=== PATIENT | female | born 1995 | race African-American/Black ===

== ENCOUNTER 2018-10-12 10:41 | Emergency (ER) | payer OTHER ==
[~2018-10-12] VITALS: Ht 167.6 cm; Wt 55.2 kg
[2018-10-12 11:51] LABS: BILIRUBIN, URINE MANUAL NEGATIVE (NEGATIVE); GLUCOSE, URINE (UA) MANUAL NEGATIVE (NEGATIVE); KETONE, URINE MANUAL NEGATIVE (NEGATIVE); UROBILINOGEN, URINE MANUAL NORMAL (NORMAL)
[2018-10-12 12:40] LABS: BACTERIA, URINE MOD AMOUNT; HYALINE CAST, URINE NONE SEEN /lpf (0-1); RBC, URINE 0-1 /hpf (0-3); TRANSITIONAL EPI CELLS, URINE SMALL AMOUNT /hpf
[2018-10-12 12:41] LABS: MUCUS, URINE SMALL AMOUNT (NEGATIVE); SQUAMOUS EPITHELIAL CELL URINE LARGE AMOUNT /hpf (SMALL AMT)
[2018-10-12] MEDS ORDERED: NAPROXEN 250 MG TAB PO ONE (13:00)
[2018-10-12 14:40] VITALS: BP 108/64
[2018-10-12 16:32] LABS: CHLAMYDIA DNA AMPLIFICATION NEGATIVE (NEGATIVE); GC DNA AMPLIFICATION NEGATIVE (NEGATIVE)
== END 2018-10-12 14:40 | disposition home or self-care (01) ==
LOC: M ED 10:41
DX: M54.5 Low back pain (principal); R10.2 Pelvic and perineal pain; F17.210 Nicotine dependence, cigarettes, uncomplicated

== ENCOUNTER 2018-11-26 12:36 | Emergency (ER) | payer OTHER ==
[~2018-11-26] VITALS: Ht 167.6 cm; Wt 54.1 kg
[2018-11-26 12:37] VITALS: BP 131/72
[2018-11-26 13:31] LABS: URINE PREG TEST NEGATIVE (NEGATIVE)
[2018-11-26] MEDS ORDERED: NS 1,000 ML IV ONE (13:45)
[2018-11-26] MEDS ORDERED: KETOROLAC 30 MG/ML VIAL (J1885) IV ONE (13:45)
[2018-11-26] MEDS ORDERED: ONDANSETRON 4MG/2ML VIAL (J2405) IV ONE (13:45)
[2018-11-26 14:30] LABS: BASO % 0.2 % (0.0-1.0); EOS % 0.3 % (0.0-3.0); HEMATOCRIT 41.1 % (36.0-47.0); HEMOGLOBIN 12.7 g/dl (12.0-15.5); LYMPH # 1.4 10^3/uL (1.5-6.5); LYMPH % 15.4 % (24.0-44.0); MEAN CORPUSCULAR HEMOGLOBIN 23.2 pg (27.0-33.0); MEAN CORPUSCULAR HGB CONC 30.9 g/dl (32.0-36.5); MEAN CORPUSCULAR VOLUME 75.1 fl (80.0-96.0); MONO # 0.8 10^3/uL (0.0-0.8); MONO % 8.3 % (0.0-5.0); NEUTROPHILS # 6.9 10^3/uL (1.8-7.7); NEUTROPHILS % 75.6 % (36.0-66.0); PLATELET COUNT, AUTOMATED 261 10^3/uL (150-450); RED BLOOD COUNT 5.47 10^6/uL (4.00-5.40); WHITE BLOOD COUNT 9.1 10^3/uL (4.0-10.0)
--- NOTE | 2018-11-26 14:31 | REP ---
CT of the abdomen pelvis without IV or bowel contrast for left flank pain: There are no left renal or ureteral calculi. There is no left hydronephrosis. No bladder calculi. There are no right renal or ureteral calculi. There is no perinephric stranding on the left on the right. The visualized lung medina are unremarkable. The unenhanced hepatic parenchyma, gallbladder, pancreas and spleen are unremarkable. The adrenals are unremarkable. The abdominal aorta is unremarkable. There is no bowel distension or obstruction. No ascites. Pelvis: The appendix is unremarkable. The uterus, adnexa and bladder are unremarkable. Lumbar spine, sacrum and pelvis are unremarkable. There is no ascites, adenopathy or mass. Impression: There are no renal, ureteral or bladder calculi. There is no hydronephrosis. Otherwise, negative CT of the abdomen and pelvis. Electronically Signed by Laurent Jensen MD 11/26/2018 02:23 P
[2018-11-26 14:52] LABS: ALT/SGPT 20 U/L (12-78); AMYLASE 45 U/L (25-115); BILIRUBIN,DIRECT 0.2 MG/DL (0.0-0.2); BILIRUBIN,TOTAL 0.8 MG/DL (0.2-1.0); BLOOD UREA NITROGEN 13 MG/DL (7-18); CALCIUM LEVEL 8.6 MG/DL (8.5-10.1); CARBON DIOXIDE LEVEL 28 MEQ/L (21-32); CHLORIDE LEVEL 103 MEQ/L (98-107); CREATININE FOR GFR 0.83 MG/DL (0.55-1.30); GLOMERULAR FILTRATION RATE > 60.0 (>60); GLUCOSE, FASTING 77 MG/DL (70-100); LIPASE 86 U/L (73-393); POTASSIUM SERUM 3.5 MEQ/L (3.5-5.1); SODIUM LEVEL 138 MEQ/L (136-145); TOTAL PROTEIN 8.1 GM/DL (6.4-8.2)
[2018-11-26] MEDS ORDERED: BACT800T5 PO (15:41)
[2018-11-26] MEDS ORDERED: PYRI1TAB5 PO (15:42)
== END 2018-11-26 16:00 | disposition home or self-care (01) ==
LOC: M ED 12:36
DX: N39.0 Urinary tract infection, site not specified (principal); R10.9 Unspecified abdominal pain; F17.200 Nicotine dependence, unspecified, uncomplicated
CPT/HCPCS: 74176; 80048; 80076; 81001; 82150; 83690; 84703; 85025; 87088; 87186; 96374; 96375; 99283; J1885; J2405

== ENCOUNTER 2019-01-29 09:53 | Emergency (ER) | payer OTHER ==
[~2019-01-29] VITALS: Ht 165.1 cm; Wt 119.0 kg
[~2019-01-29 09:53] MED LIST: BACT800T5 PO; PYRI1TAB5 PO
[2019-01-29] MEDS ORDERED: IBUPROFEN 600 MG TAB PO ONE (10:15)
[2019-01-29 11:12] LABS: INFLUENZA A AMPLIFICATION NEGATIVE (NEGATIVE); INFLUENZA B AMPLIFICATION NEGATIVE (NEGATIVE)
[2019-01-29] MEDS ORDERED: ACETAMINOPHEN 325 MG TAB PO ONE (11:30)
--- NOTE | 2019-01-29 11:53 | REP ---
Chest two views HISTORY: Fever Comparison: None The lungs are clear. The heart is normal in size. The pulmonary vasculature is normal in appearance. The bony structure is intact. IMPRESSION: No acute disease. Electronically Signed by Jaime Garcia MD 01/29/2019 11:44 A
[2019-01-29 12:05] VITALS: BP 107/53
== END 2019-01-29 12:19 | disposition home or self-care (01) ==
LOC: M ED 09:53
DX: J06.9 Acute upper respiratory infection, unspecified (principal)

== ENCOUNTER 2019-10-11 20:43 | Outpatient (CLI) | payer OTHER ==
[~2019-10-11] VITALS: Ht 162.6 cm; Wt 66.2 kg
[2019-10-11 21:06] VITALS: BP 120/68
[2019-10-11] MEDS ORDERED: IRON65TA2 PO (21:54)
[2019-10-11] MEDS ORDERED: PRENTAB77 PO (21:54)
[2019-10-11 22:51] VITALS: BP 118/75
--- NOTE | 2019-10-11 23:11 | IPNPDOC ---
Text Note Date of Service The patient was seen on 10/11/19. NOTE Triage Note Enoch is a 24yo with SIUP at approx 35wk who presents tonight for leaking of fluid today. She had intercourse this morning. Has felt "wet" all day, no big gush of fluid, never had need to put a pad on. Has felt occasional ctx. No vaginal bleeding. Good movement. No f/c. 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 She had positive nitrazine, but likely due to recent intercourse. Negative ferning/pooling/valsalva. ANDERSON 17cm. Reassuring status, irregular ctx. Vitals wnl, benign exam. Plan: -Safe for discharge home -Keep next routine OB appt -Discussed labor and ROM return precautions Dr. Lise Cheng MD VS,Ricardo, I+O VS, Ricardo, I+O Vital Signs Date Time Temp Pulse Resp B/P (MAP) Pulse Ox O2 Delivery O2 Flow Rate FiO2 10/11/19 22:51 98.2 59 18 118/75 (89) Lise Cheng MD Oct 11, 2019 23:11
== END 2019-10-11 23:10 | disposition home or self-care (01) ==
LOC: M LDO 20:43
PROVIDERS: ATTEND Obstetrics & Gynecology
DX: O26.893 Other specified pregnancy related conditions, third trimester (principal); N89.8 Other specified noninflammatory disorders of vagina; Z3A.35 35 weeks gestation of pregnancy
CPT/HCPCS: 59025; 76815; G0378; G0463

== ENCOUNTER 2019-10-18 19:52 | Inpatient (IN) | payer OTHER ==
[~2019-10-18] VITALS: Ht 162.6 cm; Wt 67.7 kg
[~2019-10-18 19:52] MED LIST changes: +IRON65TA2 PO; +PRENTAB77 PO
[2019-10-18] MEDS ORDERED: PENICILLIN G POTASSIUM IV 5 MU in D5W MINI-BAG PLUS 100 ML IV STA (19:55)
[2019-10-18] MEDS ORDERED: LR 1,000 ML IV SCH (19:55)
[2019-10-18] MEDS ORDERED: LACTATED RINGER'S 1000 ML IV STA (19:55)
[2019-10-18 19:56] VITALS: BP 139/97
[2019-10-18 20:38] LABS: HEMATOCRIT 34.8 % (36.0-47.0); HEMOGLOBIN 10.5 g/dl (12.0-15.5); MEAN CORPUSCULAR HEMOGLOBIN 22.6 pg (27.0-33.0); MEAN CORPUSCULAR HGB CONC 30.2 g/dl (32.0-36.5); PLATELET COUNT, AUTOMATED 275 10^3/uL (150-450); RED BLOOD COUNT 4.64 10^6/uL (4.00-5.40); WHITE BLOOD COUNT 9.6 10^3/uL (4.0-10.0)
[2019-10-18] MEDS ORDERED: NALBUPHINE HCL 10 MG/ML AMP (J2300) IM ONE (20:45)
[2019-10-18] MEDS ORDERED: PROMETHAZINE INJ 25 MG/ML VIAL (J2550) IV ONE (20:45)
[2019-10-18] MEDS ORDERED: NALBUPHINE HCL 10 MG/ML AMP (J2300) IV ONE (20:45)
[2019-10-18] MEDS ORDERED: BETAMETHASONE SOLUSPAN 6MG/ML INJ 5ML (J0702) IM SCH (21:00)
--- NOTE | 2019-10-18 21:44 | HPEPDOC ---
Obstetrical History & Physical General Date of Admission Oct 18, 2019 at 20:00 History of Present Illness patient is a 24 yo G1 @ 36+3wks gestation presents with ROM at around 1900 today. Chief Complaint: Contractions, pre-term, LOF, pre-term Information Provided By: Patient Age: 24 : 1 Term: 0 Pre-term: 0 Abortions: 0 Livin Care Care: Good Care Dating Final EDC: Nov 12, 2019 Final EDC for Daily Update: Nov 12, 2019 Final EDC by: LMP, 1st trimester (US) LMP: February 05, 2019 Past Medical History Past Obstetrical History : Past Obstetrical History: Primgravida Past Medical History Medical History denies Social History Marital Status: Family situation: Spouse/partner home * Smoker: non-smoker Alcohol: Denies Drugs: denies Imunizations Tdap status: current Influenza Status: declined Allergies Coded Allergies: No Known Allergies (Unverified , 10/12/18) Medications Scheduled Ferrous Sulfate (Iron) 325 Mg Tablet, 1 TAB PO BID Pnv,Calcium 72/Iron/Folic Acid ( Plus Tablet) 1 Each Tablet, 1 TAB PO D AILY Physical Examination Physical Examination GENERAL: Alert and oriented times three. BREAST: . ABDOMEN: Gravid and non-tender to touch. FETUS: Is vertex (VTX) by sterile vaginal examination (SVE), fetus is vertex (VTX) by Leif. HEART RATE: Regular rate and rhythm. LUNGS: Clear to auscultation (CTA). EXTREMITIES: No edema. efw: 3000gm grossly ruptured. Vital Signs/I&O Vital Signs Date Time Temp Pulse Resp B/P (MAP) Pulse Ox O2 Delivery O2 Flow Rate FiO2 10/18/19 19:56 99.2 74 20 139/97 (111) 99.2 Laboratory Data 24H LABS Laboratory Tests 2 10/18/19 20:27: Nucleated Red Blood Cells % (auto) 0.0 CBC/BMP Laboratory Tests 10/18/19 20:27 Pertinent Laboratoy Data Blood Type: B- RBC Antibody Screen: Negative HIV: Negative Hepatitis B: Negative Rapid Plasma Reagin: Nonreactive Rubella: Immune Varicella: Nonreactive Chlamydia/Gonorrhea: Negative Group B Streptococcus: Unknown Anatomy Ultrasound Placenta Location: Posterior Normal Anatomy: Yes Placenta Previa: No Steroid Therapy Steroid Therapy: No Vaginal Examination Dilation: 1cm Effacement: 90% Station: 0 Cervical Consistency: Soft Cervical Position: Middle Presentation: Cephalic presentation Assessment Heart Rate (FHR): 140 Variability: Moderate Accelerations: Positive Decelerations: Early Tocometer Contractions: Yes Frequency: regular, every 1-3 min. Assessment/Plan Assessment patient is a 24 yo G1 @36+3wk PPROM. Admit to L&D. Discussed with patient possibility of emergent delivery for /maternal concerns. PCN started for GBS unknown and . start additional antibiotics with s/s of infection. Risk of bleeding needing blood transfusion. Possible use of forceps or vacuum assisted vaginal delivery for concerns or prolonged second stage. risk of episiotomy discussed. Plan Admit and orient. [employer] and consent. Diet: clear PCN prophy for Group B Streptococcus (GBS) unknown Labs and intravenous (IV) per unit protocol. start pit as needed for augmentation of labor fse placed to better assess heart rate anesthesia consult for pain management pelvis adequate for trial of labor RAY JACOBS DO Oct 18, 2019 21:08
[2019-10-18 22:02] VITALS: BP 135/97
--- NOTE | 2019-10-18 22:03 | IPNPDOC ---
Text Note Date of Service The patient was seen on 10/18/19. NOTE patient received nubain and phenergan for pain management. vitals: normal fht: 140/mod juan/no accel/variable decels toco: ctx q 1-2mins ce: 2-3/90/0, IUPC placed a/p patient in early labor, IUPC placed for amnio infusion. 300cc bolus with 150cc/hr as long as there's good fluid return. VS,Fishbone, I+O VS, Fishbone, I+O Laboratory Tests 10/18/19 20:27 Vital Signs Date Time Temp Pulse Resp B/P (MAP) Pulse Ox O2 Delivery O2 Flow Rate FiO2 10/18/19 19:56 99.2 74 20 139/97 (111) 99.2 RAY JACOBS DO Oct 18, 2019 22:03
[2019-10-18 22:54] VITALS: BP 135/70
[2019-10-18] MEDS ORDERED: FENTANYL 2MCG/ML ROPIVACAINE 0.2% IN 0.9% NACL 100ML IVBAG As Ordered ONE (22:54)
[2019-10-18] MEDS ORDERED: OXYTOCIN 30 UNITS IN 0.9% NaCl 500ML IV BAG (J2590) As Ordered ONE (23:14)
[2019-10-18 23:22] VITALS: BP 132/72
--- NOTE | 2019-10-18 23:33 | DNPDOC ---
[facility] Delivery Note Delivery Note DATE OF DELIVERY: 10/18/2019 PREDELIVERY DIAGNOSIS: 36+3/7 weeks' gestation and labor. POST DELIVERY DIAGNOSIS: Delivered. PROCEDURE: FELLER HAND: Dr. Ray Malin DO ANESTHESIA: none ESTIMATED BLOOD LOSS:250cc FINDINGS: 2420gm, female , Score 8/8, nuchal cord times x 1 DELIVERY SUMMARY: Patient with urge to push. Checked to be c/c/+3. With good maternal effort, baby delivered OA, restituted LOT. Tight nuchal cord x 1 palpated. Anterior shoulder delivered followed by posterior shoulder, body delivered, cord reduced. Baby placed on maternal abdomen with vigorous cries. Cord clamped x 2 and cut by FOB. pitocin bolus started. placenta delivered. fundus massaged firm. inspection revealed no laceration. RAY MALIN DO Oct 18, 2019 23:28
[2019-10-18] MEDS ORDERED: ACETAMINOPHEN TAB 650MG DOSE (2X325MG) PO PRN (23:45)
[2019-10-18] MEDS ORDERED: IBUPROFEN 800 MG TAB PO PRN (23:45)
[2019-10-18] MEDS ORDERED: DOCUSATE SODIUM 100 MG CAP PO PRN (23:45)
[2019-10-18] MEDS ORDERED: DIBUCAINE 1% OINTMENT 30GM TOP PRN (23:45)
[2019-10-18 23:46] VITALS: BP 119/68
[2019-10-19] MEDS ORDERED: MEASLES,MUMPS,RUBELLA VACCINE INJ (MMR-II) (90707) SC SCH
[2019-10-19] MEDS ORDERED: OXYTOCIN DRIP 30 UNITS in IV 1 EA IV SCH ×2
[2019-10-19] MEDS ORDERED: LR 1,000 ML IV SCH
[2019-10-19] MEDS ORDERED: RHOGAM 300 MCG (1500 IU) INJ (J2790) IM SCH
[2019-10-19] MEDS ORDERED: PENICILLIN G POTASSIUM IV 2.5 MU in IV 1 EA IV SCH ×2
[2019-10-19 00:01] VITALS: BP 128/79
[2019-10-19 00:17] VITALS: BP 113/64
[2019-10-19 02:02] VITALS: BP 113/68
[2019-10-19 06:41] VITALS: BP 111/56
--- NOTE | 2019-10-19 06:47 | IPNPDOC ---
Progress Note Date of Service: Oct 19, 2019 Day#: 1 Progress Note SUBJECT: Patient is a 24 yo s/p ppd #1. Had a late delivery. she was induced for GHTN. Today without concerns. She has been ambulating, voiding spontaneously without issue and tolerating regular diet. Breast feeding without issue. Reports lochia is light. Plans on depo provera for contraceptive. OBJECTIVE: VITAL SIGNS: Within normal limits, afebrile. Alert and oriented times three. Abdomen: Fundus firm at U-1. Soft, NTTP. LE: no edema/erythema/tenderness A/P patient is ppd #1, doing well. encourage ambulating and breast feeding. contraceptive counseling. patient may start getting depo provera 2 weeks . anticipate d/c home after 48hrs . tika, do VS, I&O, 24H, Fishbone Vital Signs/I&O Vital Signs Date Time Temp Pulse Resp B/P (MAP) Pulse Ox O2 Delivery O2 Flow Rate FiO2 10/19/19 06:41 99.7 80 18 111/56 (74) 99.7 10/19/19 02:02 100 I&O- Last 24 Hours up to 6 AM 10/19/19 06:00 Intake Total 1650 ml Output Total 750 ml Balance 900 ml Laboratory Data 24H LABS Laboratory Tests 2 10/18/19 20:27: Nucleated Red Blood Cells % (auto) 0.0 10/18/19 21:02: Serology Scanned Report Hepatitis B Testing CBC/BMP Laboratory Tests 10/18/19 20:27 RAY JACOBS DO Oct 19, 2019 06:47
[2019-10-19] MEDS: PRENATAL VITAMINS CHEWABLE TABLET PO SCH (09:09)
[2019-10-19 17:47] VITALS: BP 115/55
[2019-10-20 06:00] VITALS: BP 114/62
[2019-10-20] MEDS: PRENATAL VITAMINS CHEWABLE TABLET PO SCH (08:39)
--- NOTE | 2019-10-20 10:52 | IPNPDOC ---
Text Note Date of Service The patient was seen on 10/20/19. NOTE PPD 2 SUBJECT: Enoch is a 24yo [id number] s/p uncomplicated after presenting with PPROM, doing well day # 1. Received 1 dose of PCN for GBS unknown pre-term. She has been ambulating, voiding spontaneously without issue and tolerating regular diet. Breast feeding without issue. Reports lochia is like a normal period. No f/c/n/v/CP/SOB. OBJECTIVE: VITAL SIGNS: Within normal limits, afebrile. Alert and oriented times three. Abdomen: Fundus firm at U-2. Soft, NTTP. Extremities: no pain with palpation of calves ASSESSMENT: Enoch is a 24yo [id number] s/p uncomplicated after presenting with PPROM, doing well day # 1. Vitals within normal limits, afebrile, hemodynamically stable with no evidence of infection. PLAN: 1. Discharge to home today. 2. Tylenol and Motrin for pain. 3. Encourage breast feeding and ambulation. 4. Unsure about contraception 5. Routine PP visit in 6 weeks in clinic. 6. Discussed return precautions at length. Dr. Lise Cheng MD VS,Ricardo, I+O VS, Ricardo, I+O Vital Signs Date Time Temp Pulse Resp B/P (MAP) Pulse Ox O2 Delivery O2 Flow Rate FiO2 10/20/19 06:00 97.9 60 16 114/62 (79) 96 Room Air 97.9 Lise Cheng MD Oct 20, 2019 10:51
--- NOTE | 2019-10-20 10:53 | OBDS ---
[facility] Obstetrical Discharge Sum. Obstetrical Discharge Summary Displayer/Provider: RAY JACOBS DO VDRL: Non-Reactive Rh: Negative Rubella: Immune Sex: Male A/P, Post Course List any complications Admission diagnosis: premature rupture membranes at 36+3wks Discharge diagnosis: spontaneous vaginal delivery Condition at Discharge: stable Discharge Instructions: Home Activity: As tolerated Diet: regular Medications: filled at [facility] Follow-up: 6-8wks Hospital course: Patient admitted for premature rupture of membranes at 36+3wks gestation. She progressed to have spontaneous vaginal delivery. She had a benign course and at time of discharge was hemodynamically stable with no evidence of infection. Vitals wnl, benign exam. MD ARLENE Dumont LUAT N. DO Oct 18, 2019 23:31 Lise Cheng MD Oct 20, 2019 10:53
[2019-10-20] MEDS ORDERED: DOCU100C16 PO (10:54)
[2019-10-20] MEDS ORDERED: ACET1TAB55 PO (10:54)
[2019-10-20] MEDS ORDERED: IBUP80TA PO (10:54)
== END 2019-10-20 14:30 | disposition home or self-care (01) | DRG 807 ==
LOC: M LDO 19:52 → M LDI 20:00 → M OBS 10-19 01:38
PROVIDERS: ADMIT Obstetrics & Gynecology; ATTEND Obstetrics & Gynecology
PROC: 10E0XZZ Delivery of Products of Conception, External Approach (ICD-10-PCS; principal; 2019-10-18)
PROC: 3E0E77Z Introduction of Electrolytic and Water Balance Substance into Products of Conception, Via Natural or Artificial Opening (ICD-10-PCS; 2019-10-18)
DX: O42.013 Preterm premature rupture of membranes, onset of labor within 24 hours of rupture, third trimester (principal); Z37.0 Single live birth; O69.1XX0 Labor and delivery complicated by cord around neck, with compression, not applicable or unspecified; Z3A.36 36 weeks gestation of pregnancy